=== PATIENT | female | born 1955 | race African-American/Black ===

== ENCOUNTER 2019-03-31 14:56 | Emergency (ER) | payer OTHER ==
[~2019-03-31] VITALS: Ht 162.6 cm; Wt 63.5 kg
--- NOTE | 2019-03-31 15:27 | Emergency Room Report ---
History of Present Illness General Chief Complaint: Behavioral Complaint Source: Law Enforcement Present Illness HPI Disclaimer: Please note that this report is being documented using [employer] technology. This can lead to erroneous entry secondary to incorrect interpretation by the dictating instrument. HPI: 41-year-old female, Rox Casey, brought in by police for evaluation of bizarre behavior. She was brought from a vascular restaurant for babbling incoherently. No violence was reported. No drugs or alcohol were found on person. Patient had no identification on her but she is wearing a fall risk bracelet presumably from a facility. She cannot provide her name or any useful information at this time. She is mumbling incoherently to her self but is not striking out anyone or showing signs of aggression. PMH: Unknown PSH: Unknown Allergies: Unknown Social Hx: Unknown Allergies: Coded Allergies: No Known Allergies (Unverified , 03/31/19) Patient History Now: No Review of Systems All Other Systems: limited - Unable to obtain from patient due to clinical condition Physical Exam Vital Signs Date Time Temp Pulse Resp B/P (MAP) Pulse Ox O2 Delivery O2 Flow Rate FiO2 03/31/19 14:59 97.3 84 18 149/74 (99) 98 Room Air General: Awake, oriented to self or place, mumbling incoherently HEENT: NC/AT. EOMI. dry mucous membranes Cardiovascular: RRR. S1 and S2 normal. No murmur appreciated Resp: Normal work of breathing. No cough, wheezing or crackles appreciated Abdomen: Abdomen is soft, nondistended. Nontender Skin: Scar over the left arm is clean dry and intact. Intact. No abrasions, laceration or rash over the exposed skin MSK: Normal tone and bulk. Moving all extremities. No obvious deformity. Neuro: Awake, intermittent eye contact, sometimes avoidant. Not answering to verbal questioning. Moving all extremities. No apparent hallucinations. No aggressive behavior. Mumbling incoherently to self. Cannot provide any history. Medical Decision Making Diagnostic Impression: Primary Impression: Cocaine abuse Additional Impression: Abnormal behavior ER Course Rox Casey brought in by law enforcement for evaluation of bizarre behavior. She arrives with stable vital signs and is no acute distress but cannot appear to provide any significant history given her current mental status. She is sleeping comfortably on my reevaluation in the room. Will obtain broad labs to evaluate for electrolyte abnormalities, signs of infection, toxicologic causes of altered mental status. There is no reported trauma or outward signs of trauma. Do not believe she requires emergent imaging at this time. Can advance work-up as needed. Laboratory Tests Test 03/31/19 18:30 03/31/19 20:14 White Blood Count 7.1 K/UL (4.8-10.8) Red Blood Count 4.30 M/UL (4.20-5.40) Hemoglobin 12.5 G/DL (12.0-16.0) Hematocrit 37.4 % (37.0-47.0) Mean Corpuscular Volume 87 FL (80-99) Mean Corpuscular Hemoglobin 29.0 PG (27.0-31.0) Mean Corpuscular Hemoglobin Concent 33.3 G/DL (32.0-36.0) Red Cell Distribution Width 13.2 % (11.6-14.8) Platelet Count 340 K/UL (150-450) Mean Platelet Volume 4.8 FL (6.5-10.1) L Neutrophils (%) (Auto) 63.9 % (45.0-75.0) Lymphocytes (%) (Auto) 22.2 % (20.0-45.0) Monocytes (%) (Auto) 10.4 % (1.0-10.0) H Eosinophils (%) (Auto) 1.5 % (0.0-3.0) Basophils (%) (Auto) 2.1 % (0.0-2.0) H Sodium Level 139 MMOL/L (136-145) Potassium Level 4.5 MMOL/L (3.5-5.1) Chloride Level 101 MMOL/L (98-107) Carbon Dioxide Level 29 MMOL/L (21-32) Anion Gap 9 mmol/L (5-15) Blood Urea Nitrogen 13 mg/dL (7-18) Creatinine 0.8 MG/DL (0.55-1.30) Estimate Glomerular Filtration Rate > 60 mL/min (>60) Glucose Level 97 MG/DL (74-106) Calcium Level 8.7 MG/DL (8.5-10.1) Total Bilirubin 0.4 MG/DL (0.2-1.0) Aspartate Amino Transferase (AST) 40 U/L (15-37) H Alanine Aminotransferase (ALT) 30 U/L (12-78) Alkaline Phosphatase 126 U/L (46-116) H Total Protein 7.4 G/DL (6.4-8.2) Albumin 3.6 G/DL (3.4-5.0) Globulin 3.8 g/dL Albumin/Globulin Ratio 0.9 (1.0-2.7) L Salicylates Level 2.1 ug/mL (2.8-20) L Acetaminophen Level < 2 MCG/ML (10-30) L Serum Alcohol < 3 mg/dL Urine Opiates Screen Negative (NEGATIVE) Urine Barbiturates Screen Negative (NEGATIVE) Phencyclidine (PCP) Screen Negative (NEGATIVE) Urine Amphetamines Screen Positive (NEGATIVE) H Urine Benzodiazepines Screen Negative (NEGATIVE) Urine Cocaine Screen Positive (NEGATIVE) H Urine Marijuana (THC) Screen Negative (NEGATIVE) Reevaluation Time: 22:06 Last Vital Signs Date Time Temp Pulse Resp B/P (MAP) Pulse Ox O2 Delivery O2 Flow Rate FiO2 03/31/19 14:59 97.3 84 18 149/74 (99) 98 Room Air Reevaluation Impression Patient's urine tox is tested positive for amphetamines and cocaine. CBC, chemistry otherwise within normal limits. Patient is sleeping comfortably. Occasionally wakes up to eat something. Still not giving name. Will be allowed to further metabolize in the ED. She will be signed out to the oncoming physician pending reevaluation though I suspect she may be ultimately discharged home Disposition: HOME, SELF-CARE Condition: Stable Moe Shen MD Mar 31, 2019 15:27
--- NOTE | 2019-03-31 15:52 | NUR ---
ED Nurse Note:pt. was BIBA from street where she was screaming , pt. not giving her name and refusing to have blood draw -MD was notified
[2019-03-31] MEDS ORDERED: Haloperidol 5mg/ml Inj IM ONE (16:15)
[2019-03-31 17:15] VITALS: BP 149/74
--- NOTE | 2019-03-31 18:37 | NUR ---
ED Nurse Note:blood sent to labs
[2019-03-31 18:54] LABS: BASOPHILS % (AUTO) 2.1 % (0.0-2.0); EOSINOPHILS % (AUTO) 1.5 % (0.0-3.0); HEMATOCRIT 37.4 % (37.0-47.0); HEMOGLOBIN 12.5 G/DL (12.0-16.0); LYMPHOCYTES % (AUTO) 22.2 % (20.0-45.0); MEAN CORPUSCULAR VOLUME 87 FL (80-99); MONOCYTES % (AUTO) 10.4 % (1.0-10.0); NEUTROPHILS % (AUTO) 63.9 % (45.0-75.0); PLATELET COUNT 340 K/UL (150-450); RED CELL DISTRIBUTION WIDTH 13.2 % (11.6-14.8); WHITE BLOOD COUNT 7.1 K/UL (4.8-10.8)
[2019-03-31 19:11] LABS: ANION GAP 9 mmol/L (5-15); BLOOD UREA NITROGEN 13 mg/dL (7-18); CALCIUM 8.7 MG/DL (8.5-10.1); CARBON DIOXIDE 29 MMOL/L (21-32); CHLORIDE 101 MMOL/L (98-107); CREATININE 0.8 MG/DL (0.55-1.30); POTASSIUM 4.5 MMOL/L (3.5-5.1); SODIUM 139 MMOL/L (136-145)
[2019-03-31 19:15] LABS: ALANINE AMINOTRANSFERASE 30 U/L (12-78); ALBUMIN 3.6 G/DL (3.4-5.0); ALBUMIN/GLOBULIN RATIO 0.9 (1.0-2.7); ALKALINE PHOSPHATASE 126 U/L (46-116); ASPARTATE AMINO TRANSFERASE 40 U/L (15-37); BILIRUBIN,TOTAL 0.4 MG/DL (0.2-1.0)
--- NOTE | 2019-03-31 19:40 | NUR ---
ER Nurse Note: Pt asleep, no signs of distress. Pt calm. All safety measures met; will continue to montior.
[2019-03-31 22:31] VITALS: BP 142/70
--- NOTE | 2019-03-31 22:32 | NUR ---
ER Nurse Note: No deviations from baseline. Pt asleep, RA, no signs of distress. Pt asleep, chest rise and fall noted. No falls, all safety measures met. Will continue to montior.
[2019-03-31 22:55] LABS: APPEARANCE,URINE CLEAR; BILIRUBIN, URINE NEGATIVE (NEGATIVE); COLOR,URINE PALE YELLOW; GLUCOSE, URINE (UA) NEGATIVE (NEGATIVE); KETONES,URINE 1+ (NEGATIVE); LEUKOCYTE ESTERASE ,URINE NEGATIVE (NEGATIVE); NITRITE,URINE NEGATIVE (NEGATIVE); PH,URINE 7 (4.5-8.0); PROTEIN,URINE 1+ (NEGATIVE); UROBILINOGEN,URINE NORMAL MG/DL (0.0-1.0)
[2019-04-01 03:12] VITALS: BP 134/76
--- NOTE | 2019-04-01 03:12 | NUR ---
ER Nurse Note: Pt asleep, RA, no signs of distress. Pt does not complain of pain, shortness of breath. Pt not ready for discharge. All safety measures met; will conitnue to stephanie.
[2019-04-01 05:20] VITALS: BP 140/72
--- NOTE | 2019-04-01 05:20 | NUR ---
Homeless Discharge: Patient is being discharged from medical care. Awake, alert and oriented x3. After care instructions, including referral to community resources were given. Patient verbalized understanding of After care instructions; at this time patient does not request medications, equipment or placement. Patient signed patient consent in the medical record for patient destination upon discharge. All medical devices such as IV and ID band were removed. Patient ambulated out with all personal belongings with steady gait.
== END 2019-04-01 05:20 | disposition home or self-care (01) ==
LOC: EDBD 14:56 → EMR 22:38
DX: F14.10 Cocaine abuse, uncomplicated (principal); R46.2 Strange and inexplicable behavior
CPT/HCPCS: 36415; 80053; 80307; 81003; 84703; 85025; 96372; G0480; G0481; J1630; Z7502; 99283